=== PATIENT | male | born 1965 | race Caucasian/White ===

== ENCOUNTER 2019-06-26 12:24 | Emergency (ER) | payer OTHER ==
[~2019-06-26] VITALS: Ht 172.7 cm; Wt 61.2 kg
--- NOTE | 2019-06-26 12:37 | NUR ---
CAME IN FOR SKIN LESIONS/RASH, BOTH LOWER EXTREMITIES X 2 MONTHS, TO ER BED 13, HOOKED TO MONITOR, AWAITING MD PHILIP
--- NOTE | 2019-06-26 12:58 | NUR ---
TARA SR AT BEDSIDE
[2019-06-26] MEDS ORDERED: TDAP [DIPH/PERTUSSIS/TET] 0.5 ML VIAL IM ONE ×2 (13:08→13:30)
--- NOTE | 2019-06-26 13:11 | NUR ---
PT REFUSED TDAP SHOT. ISA PACHECO MADE AWARE.
--- NOTE | 2019-06-26 13:30 | NUR ---
PATIENT DENIED BEING HOMELES. STATES " I HAVE AN APARTMENT BY THE [employer]". Patient discharged to home in stable condition. Written and verbal after care instructions given. Patient verbalizes understanding of instruction.
[2019-06-26 13:33] VITALS: BP 117/65
== END 2019-06-26 13:34 | disposition home or self-care (01) ==
LOC: ER 12:31
DX: L03.116 Cellulitis of left lower limb (principal); L03.115 Cellulitis of right lower limb; L91.8 Other hypertrophic disorders of the skin; F19.10 Other psychoactive substance abuse, uncomplicated; F11.10 Opioid abuse, uncomplicated; Z98.890 Other specified postprocedural states; Z60.2 Problems related to living alone
CPT/HCPCS: 90715